=== PATIENT | male | born 1945 | race African-American/Black ===

== ENCOUNTER 2022-03-16 10:24 | Outpatient (CLI) | payer MEDICARE, OTHER | END 2022-03-16 10:25 | disposition home or self-care (01) | LOC: BICCT 10:24 | PROVIDERS: ATTEND Otolaryngology Plastic Surgery within the Head & Neck | DX: R22.1 Localized swelling, mass and lump, neck (principal); E07.89 Other specified disorders of thyroid; K76.89 Other specified diseases of liver; K86.89 Other specified diseases of pancreas; J43.9 Emphysema, unspecified; I70.90 Unspecified atherosclerosis | CPT/HCPCS: 70491; 71260; 82565 ==

== ENCOUNTER 2023-09-14 13:23 | Emergency (ER) | payer MEDICARE, OTHER ==
[~2023-09-14 13:23] MED LIST: Iopamidol-370 76% 500 ML MDV (1 ML CHARGE) ONE
[2023-09-14] MEDS ORDERED: Iopamidol 370 76% 100 ML VIAL ONE (13:26)
[2023-09-14 14:01] LABS: Hematocrit 35.1 % (42.0-52.0); Hemoglobin 11.6 g/dL (14.0-18.0); Mean Corpuscular Hemoglobin 27.7 pg (27.0-31.0); Mean Corpuscular Volume 83.8 fl (78.0-98.0); Mean Platelet Volume 9.8 fL (7.4-10.4); Platelet Count 292 10x3/uL (130-400); RBC Distribution Width 14.1 % (11.5-14.5); Red Blood Cell (RBC) Count 4.19 mill/uL (4.70-6.10); White Blood Cell (WBC) Count 30.6 10x3/uL (4.8-10.8)
[2023-09-14 14:25] LABS: ALT (SGPT) 14 U/L (8-55); AST (SGOT) 16 U/L (5-34); Albumin 4.1 g/dL (3.4-4.8); Alkaline Phosphatase 70 U/L (40-110); Anion Gap 13 mmol/L (10-20); BUN (Urea Nitrogen) 9 mg/dL (8.4-25.7); Bilirubin, Total 0.8 mg/dL (0.2-1.2); Calc. Creatinine Clearance 0 mL/min (70-130); Calcium 10.3 mg/dL (7.8-10.44); Carbon Dioxide 23 mmol/L (23-31); Chloride 100 mmol/L (98-107); Estimated GFR 72; Globulin 2.9 g/dL (2.4-3.5); Glucose 215 mg/dL (83-110); Potassium 3.3 mmol/L (3.5-5.1); Sodium 133 mmol/L (136-145)
[2023-09-14 14:40] LABS: Manual Diff?? YES
[2023-09-14 14:41] LABS: Delete Auto Diff?? YES
[2023-09-14 15:03] LABS: Band 9 % (5-11); CellaVision Operator ID LAB.KB; Lymphocytes 4 % (21-51); Monocytes 10 % (0-10); Neutrophil 77 % (42-75); Platelet Adequacy Comment Platelets Normal; RBC Morphology Within Normal Limits; Total Cell Count 100
[2023-09-14 15:10] LABS: Troponin I Less than 0.010 ng/mL (< 0.028)
[2023-09-14] MEDS ORDERED: Potassium Chloride 20 MEQ TAB ONE (16:45)
[2023-09-14] MEDS ORDERED: Acetaminophen 325 MG TAB ONE (16:45)
[2023-09-14 17:00] LABS: Bacteria/HPF None Seen HPF (None Seen); Bilirubin Negative (Negative); Blood, Urine Negative (Negative); CAUTI Indications for Culture Pelvic or flank pain; Clarity Clear (Clear); Glucose, Urine (Dipstick) Normal (Negative); Ketone, Urine 10 mg/dL (Negative); Leukocyte Negative Leu/uL (Negative); Nitrite Negative (Negative); Protein, Urine (Dipstick) 70 mg/dL (Neg-Trace); RBC/HPF 0-3 HPF (0-3); Specific Gravity, Urine 1.029 (1.002-1.036); Squamous Epithelial 0-3 HPF (0-3); Urobilinogen Normal mg/dL (Less than 2); WBC/HPF 0-3 HPF (0-3); pH, Urine 5.5 (5.0-9.0)
[2023-09-14 17:04] LABS: Urine Culture Reflex No No
[2023-09-14] MEDS ORDERED: Morphine 4 MG/ML VIAL ONE (17:53)
[2023-09-14] MEDS ORDERED: Cefepime 2 GM VIAL ONE (17:54)
[2023-09-14] MEDS ORDERED: Sodium Chloride 0.9% 100 ML ONE (17:55)
[2023-09-14] MEDS ORDERED: Vancomycin (BATCH) 1.5 GM in Premix 1 BAG IVPB SCH (18:15)
[2023-09-14] MEDS ORDERED: metroNIDAZOLE 500 MG/100 ML BAG ONE (19:10)
[2023-09-15] MEDS ORDERED: Cefepime 2 GM VIAL ONE (01:55)
[2023-09-15] MEDS ORDERED: metroNIDAZOLE 500 MG/100 ML BAG ONE (01:55)
[2023-09-15] MEDS ORDERED: Vancomycin (BATCH) 1.5 GM in Premix 1 BAG IVPB SCH (02:15)
== END 2023-09-15 09:00 | disposition short-term general hospital (02) ==
LOC: ERS 13:23
DX: K86.9 Disease of pancreas, unspecified (principal); R00.0 Tachycardia, unspecified; D72.829 Elevated white blood cell count, unspecified; E78.5 Hyperlipidemia, unspecified; I10 Essential (primary) hypertension; E11.9 Type 2 diabetes mellitus without complications; F17.210 Nicotine dependence, cigarettes, uncomplicated; Z79.84 Long term (current) use of oral hypoglycemic drugs; Z79.899 Other long term (current) drug therapy
CPT/HCPCS: 71045; 71275; 74177; 80053; 81001; 83605; 83690; 84484; 85025; 85379; 87040; 93005; J3370 ×2; 36415; 96361; 96365; 96366; 96367; 96368; 96375; 96376; J0692; J2270; J3490; Q9967